=== PATIENT | male | born 1990 | race Caucasian/White ===

== ENCOUNTER 2017-11-27 03:18 | Inpatient (IN) | payer MEDICAID ==
[~2017-11-27] VITALS: Ht 170.2 cm; Wt 76.2 kg
[2017-11-27 03:24] VITALS: Ht 170.2 cm; Wt 76.2 kg
[2017-11-27 04:16] LABS: BASOPHIL % 0.4 % (0-2); PLATELET COUNT 206 x10^3mcL (130-400); RED CELL DISTRIBUTION WIDTH 14.4 % (11.5-14.5)
[2017-11-27 04:56] LABS: ALBUMIN 3.7 g/dL (3.4-5.0); ALKALINE PHOSPHATASE 58 U/L (46-116); ALT/SGPT 36 U/L (16-63); AST/SGOT 21 U/L (15-37); BILIRUBIN TOTAL 0.38 mg/dL (0.20-1.00); CARBON DIOXIDE 20.7 mmol/L (21-32); CHLORIDE SERUM 106 mmol/L (98-107); CREATININE SERUM 0.8 mg/dL (0.7-1.3); GFR1 > 60 mL/min; GLUCOSE SERUM 92 mg/dL (74-106); SODIUM SERUM 143 mmol/L (136-145); TOTAL PROTEIN, SERUM 7.2 g/dL (6.4-8.2)
[2017-11-27 05:02] LABS: POTASSIUM SERUM 2.9 mmol/L (3.5-5.1)
[2017-11-27 07:21] LABS: MAGNESIUM 2.3 mg/dL (1.8-2.4); PHOSPHOROUS 2.6 mg/dL (2.5-4.9)
[2017-11-27 07:24] LABS: CHOLESTEROL/HDL RATIO 2.1
[2017-11-27 07:30] LABS: FREE T4 1.27 ng/dL (0.76-1.46); FREE THYROXINE INDEX 2.9 ug/dL (1.4-4.5); T4(THYROXINE) 7.9 ug/dL (4.7-13.3)
[2017-11-27 08:10] VITALS: BP 102/60
[2017-11-29 09:13] LABS: T3 TOTAL 0.92 ng/mL
== END 2017-11-27 09:07 | disposition left against medical advice (07) | DRG 770 ==
LOC: ED 03:18 → DU 06:32
PROVIDERS: Emergency Medicine; Family Medicine Sports Medicine
DX: F10.129 Alcohol abuse with intoxication, unspecified (principal); G92 Toxic encephalopathy; F14.129 Cocaine abuse with intoxication, unspecified; E87.2 Acidosis; E87.6 Hypokalemia; S06.0X0A Concussion without loss of consciousness, initial encounter; X58.XXXA Exposure to other specified factors, initial encounter; Y93.89 Activity, other specified; Y99.8 Other external cause status; Y92.481 Parking lot as the place of occurrence of the external cause
CPT/HCPCS: 83880; 84439; G0480; J3475; J3480; J3490; J7030

== ENCOUNTER → 2017-11-27 | Emergency (ER) | payer OTHER | LOC: ED 05:48 | DX: Z02.89 Encounter for other administrative examinations (principal) ==

== ENCOUNTER 2018-01-07 03:37 | Emergency (ER) | payer MEDICAID ==
[~2018-01-07] VITALS: Ht 175.3 cm; Wt 79.4 kg
[2018-01-07 03:45] VITALS: Ht 175.3 cm; Wt 79.4 kg
[2018-01-07 06:50] VITALS: BP 106/68
== END 2018-01-07 06:50 | disposition other institution (70) ==
LOC: ED 03:37
DX: S01.01XA Laceration without foreign body of scalp, initial encounter (principal); S10.91XA Abrasion of unspecified part of neck, initial encounter; W01.10XA Fall on same level from slipping, tripping and stumbling with subsequent striking against unspecified object, initial encounter; Y93.89 Activity, other specified; Y92.89 Other specified places as the place of occurrence of the external cause; Y99.8 Other external cause status
CPT/HCPCS: 90715; J1885; J2001

== ENCOUNTER 2018-01-07 03:37 | Emergency (ER) | payer OTHER | END 2018-01-07 06:50 | disposition other institution (70) | LOC: ED 03:37 | DX: Z02.89 Encounter for other administrative examinations (principal) ==